=== PATIENT | male | born 1995 | race Caucasian/White ===

== ENCOUNTER → 2022-09-23 | Outpatient (CLI) | payer MEDICAID, OTHER ==
--- NOTE | 2022-09-23 16:33 | Diagnostic Imaging Report ---
PROCEDURE: US renal bilateral. TECHNIQUE: Multiple real-time grayscale images were obtained over the kidneys in various projections, bilaterally. INDICATION: Absent vas deferens. FINDINGS: The right kidney is 12.0 cm, the left 12.8 cm both normally positioned. Normal in volume, morphology and echotexture. No solid or cystic renal mass. No hydronephrosis. The urinary bladder appears normal. IMPRESSION: Normal sonographic appearance of the unobstructed kidneys and urinary bladder. Dictated by: Dictated on workstation # [id number]
== END ==
LOC: RAD 14:46
PROVIDERS: ATTEND Surgery
DX: Z90.79 Acquired absence of other genital organ(s) (principal)
CPT/HCPCS: 76770